=== PATIENT | male | born 1960 | race Caucasian/White ===

== ENCOUNTER 2018-12-12 12:08 | Emergency (ER) | payer OTHER ==
--- NOTE | 2018-12-12 13:28 | EDM.PDOC ---
ED HPI GENERAL MEDICAL PROBLEM - General Chief Complaint: Abdominal Pain Stated Complaint: PAIN ON LOWER RIGHT AREA Time Seen by Provider: 12/12/18 12:55 Source of Information: Reports: Patient History Limitations: Reports: No Limitations - History of Present Illness INITIAL COMMENTS - FREE TEXT/NARRATIVE: 58 yo without significant medical history presents with concerns of abdominal pain. Actually has intermittent epigastric pain, but what brings him in today is RLQ abdominal pain. He reports that the pain started about 6 days ago. Has been intermittent, then overnight had several bouts of severe, sharp, non-radiating RLQ pain. He has not associated fevers or N/V. He has been having loose stools for some time without change. Pain has eased somewhat this morning, had normal BM, but still persists. Never had colonoscopy. No hx of renal stones, no hematuria or urinary symptoms. - Related Data Allergies Allergy/AdvReac Type Severity Reaction Status Date / Time No Known Allergies Allergy Verified 12/12/18 12:24 Home Meds: Home Meds Allopurinol [Zyloprim] 1 tab PO DAILY 12/12/18 [History] Celecoxib 1 tab PO DAILY 12/12/18 [History] Ciprofloxacin [Ciprofloxacin HCl] 500 mg PO BID #14 tab 12/12/18 [Rx] Levothyroxine 1 tab PO DAILY 12/12/18 [History] Lisinopril 1 tab PO DAILY 12/12/18 [History] metroNIDAZOLE [Flagyl] 500 mg PO Q8H 7 Days #21 tab 12/12/18 [Rx] Past Medical History Gastrointestinal History: Reports: Cirrhosis, Irritable Bowel Syndrome Genitourinary History: Reports: Renal Calculus Neurological History: Reports: Concussion Endocrine/Metabolic History: Reports: Hypothyroidism Dermatologic History: Reports: Other (See Below) Other Dermatologic History: pilonidal cyst - Past Surgical History HEENT Surgical History: Reports: Tonsillectomy Musculoskeletal Surgical History: Reports: Hip Replacement Social & Family History - Tobacco Use Smoking Status *Q: Never Smoker ED ROS GENERAL - Review of Systems Review Of Systems: See Below Constitutional: Reports: No Symptoms HEENT: Reports: No Symptoms Respiratory: Reports: No Symptoms Cardiovascular: Reports: No Symptoms Endocrine: Reports: No Symptoms GI/Abdominal: Reports: Abdominal Pain : Reports: No Symptoms Musculoskeletal: Reports: No Symptoms Skin: Reports: No Symptoms Neurological: Reports: No Symptoms Psychiatric: Reports: No Symptoms Hematologic/Lymphatic: Reports: No Symptoms Immunologic: Reports: No Symptoms ED EXAM, GI/ABD - Physical Exam Exam: See Below Exam Limited By: No Limitations General Appearance: Alert, No Apparent Distress Ears: Normal External Exam Nose: Normal Inspection Throat/Mouth: Normal Inspection Head: Atraumatic, Normocephalic Neck: Normal Inspection Respiratory/Chest: No Respiratory Distress, Lungs Clear Cardiovascular: Regular Rate, Rhythm GI/Abdominal Exam: Tender (RLQ tenderess, with deferred LLQ pain with palpation as well as LLQ tenderness). No: Distended, Guarding, Rigid (Male) Exam: No Hernia, Normal Inspection. No: Scrotal Swelling, Scrotum Tenderness (L), Scrotum Tenderness (R) Back Exam: Normal Inspection. No: CVA Tenderness (R), CVA Tenderness (L) Extremities: Normal Inspection Neurological: Alert, Oriented Psychiatric: Normal Affect, Normal Mood Skin Exam: Warm, Dry Course - Vital Signs Last Recorded V/S: Last Vital Signs Temp 36.9 C 12/12/18 12:49 Pulse 78 12/12/18 12:49 Resp 14 12/12/18 12:49 BP 127/84 12/12/18 12:49 Pulse Ox 98 12/12/18 12:49 - Orders/Labs/Meds Orders: Active Orders 24 hr Category Date Time Status Iopamidol [Isovue-300 (61%)] Med 12/12/18 13:45 Active 150 ml IV . DIRECTED Medication Orders Iopamidol (Isovue-300 (61%)) 150 ml IV . DIRECTED EAN Stop: 12/12/18 23:00 Last Admin: 12/12/18 14:21 Dose: 150 ml Labs: Laboratory Tests 12/12/18 12/12/18 Range/Units 13:21 13:35 WBC 11.1 H (4.5-11.0) K/uL RBC 4.95 (4.30-5.90) M/uL Hgb 15.6 H (12.0-15.0) g/dL Hct 48.0 (40.0-54.0) % MCV 97 (80-98) fL MCH 32 H (27-31) pg MCHC 33 (32-36) % Plt Count 176 (150-400) K/uL Sodium 136 L (140-148) mmol/L Potassium 4.3 (3.6-5.2) mmol/L Chloride 98 L (100-108) mmol/L Carbon Dioxide 29 (21-32) mmol/L Anion Gap 13.3 (5.0-14.0) mmol/L BUN 13 (7-18) mg/dL Creatinine 1.0 (0.8-1.3) mg/dL Est Cr Clr Drug Dosing 92.11 mL/min Estimated GFR (MDRD) > 60 (>60) Glucose 107 H (74-106) mg/dL Calcium 9.2 (8.5-10.1) mg/dL Total Bilirubin 1.2 H (0.2-1.0) mg/dL AST 58 H (15-37) U/L ALT 85 H (12-78) U/L Alkaline Phosphatase 73 (46-116) U/L Total Protein 8.2 (6.4-8.2) g/dL Albumin 4.0 (3.4-5.0) g/dL Globulin 4.2 H (2.3-3.5) g/dL Albumin/Globulin Ratio 1.0 L (1.2-2.2) Lipase 201 (73-393) U/L Meds: Medications Generic Name Dose Route Start Last Admin Trade Name Freq PRN Reason Stop Dose Admin Iopamidol 150 ml 12/12/18 13:45 12/12/18 14:21 Isovue-300 (61%) IV 12/12/18 23:00 150 ml . DIRECTED EAN Administration Discontinued Medications Generic Name Dose Route Start Last Admin Trade Name Freq PRN Reason Stop Dose Admin Sodium Chloride 80 mls @ 3.5 mls/sec 12/12/18 13:41 12/12/18 14:21 Normal Saline IV 12/12/18 13:42 3 mls/sec ONETIME ONE Administration Sodium Chloride 10 ml 12/12/18 13:41 12/12/18 14:21 Saline Flush FLUSH 12/12/18 13:42 10 ml ONETIME ONE Administration - Re-Assessments/Exams Free Text/Narrative Re-Assessment/Exam: 58 yo presents with concerns of lower abdominal pain. Somewhat sub-acute, with worsening earlier this morning. While history not terrible concerning, does have impressive tenderness on exam. No hernia. Normal vitals. We discussed work-up options and patient preference is go ahead with labs and CT , I do feel this is reasonable given his exam findings. 12/12/18 13:30 Free Text/Narrative Re-Assessment/Exam: Lab significant for mild leukocytosis,mild elevation of LFTs CT shows diverticulitis - clinically fits with his symptoms. Appears well, normal vitals, tolerating PO - appropriate for outpatient treatment Will prescribed cipro + flagyl Has PCP follow up next week, will discuss LFTs Return precautions provided. Discharged. 12/12/18 15:44 Departure - Departure Time of Disposition: 17:46 Disposition: Home, Self-Care 01 Clinical Impression: Diverticulitis - Discharge Information Prescriptions: Ciprofloxacin [Ciprofloxacin HCl] 500 mg PO BID #14 tab metroNIDAZOLE [Flagyl] 500 mg PO Q8H 7 Days #21 tab Referrals: Charissa Tavares MD [Primary Care Provider] - Forms: ED Department Discharge Additional Instructions: Please take the prescribed antibiotics Return to the ER for worsening pain, fevers, as discussed Follow up with your PCP as planned. - My Orders Last 24 Hours: My Active Orders 12/12/18 13:45 Iopamidol [Isovue-300 (61%)] 150 ml IV . DIRECTED - Assessment/Plan Last 24 Hours: My Active Orders 12/12/18 13:45 Iopamidol [Isovue-300 (61%)] 150 ml IV . DIRECTED
[2018-12-12] MEDS ORDERED: Sodium Chloride 0.9% 80 ML IV ONE (13:41)
[2018-12-12] MEDS ORDERED: Sodium Chloride 0.9% 10 ML Syringe FLUSH ONE (13:41)
[2018-12-12] MEDS ORDERED: Iopamidol 612 MG/ML 150 ML Bottle IV SCH (13:45)
--- NOTE | 2018-12-12 14:56 | CRLCT ---
Indication: Lower abdominal pain. Technique: Multiple contiguous axial images were obtained from the lung bases to the symphysis pubis after the intravenous administration of 100 milliliters Isovue-300. Please note that all CT scans at this facility use dose modulation, iterative reconstruction, and/or weight-based dosing when appropriate to reduce radiation dose to as low as reasonably achievable. Comparison: None Findings: The lung bases are clear. Micro nodules are identified in the right middle lobe. No infiltrate, pleural effusion, pneumothorax is identified. The heart is normal in size. Mild diffuse fatty infiltration of the liver is identified. The liver, gallbladder, pancreas, spleen, and adrenal glands are otherwise normal. No intrahepatic biliary ductal dilatation is identified. No hydronephrosis identified. Several bilateral renal cysts are identified. In the pelvis, the urinary bladder is grossly normal. Streak artifact from patient`s bilateral hip arthroplasties obscure multiple images. Diverticulitis of the ascending colon is identified. No abscess is identified. The appendix is normal in caliber. No free air or free fluid is identified within the abdomen or pelvis. No lytic or blastic lesions of the spine are present. Impression: Diverticulitis of the ascending colon. No abscess. No free air. Mild diffuse fatty infiltration of the liver Please note that all CT scans at this facility use dose modulation, iterative reconstruction, and/or weight-based dosing when appropriate to reduce radiation dose to as low as reasonably achievable. Dictated by Teresa Torres MD @ Dec 12 2018 2:41PM Signed by Dr. Teresa Torres @ Dec 12 2018 2:55PM
== END 2018-12-12 16:06 | disposition home or self-care (01) ==
LOC: JP.ED 12:08
DX: K57.32 Diverticulitis of large intestine without perforation or abscess without bleeding (principal); E03.9 Hypothyroidism, unspecified; Z79.899 Other long term (current) drug therapy; Z98.890 Other specified postprocedural states
CPT/HCPCS: 36415; 74177; 80053; 83690; 85027; 99284; J7030

== ENCOUNTER 2018-12-29 08:37 | Day surgery (SDC) | payer OTHER ==
[~2018-12-29 08:37] MED LIST: Midazolam 1 MG/ML 2 ML SDV ONE; Propofol 200 MG/20 ML SDV ONE; fentaNYL 100 MCG/2 ML SDV ONE
[2018-12-29] MEDS ORDERED: fentaNYL 100 MCG/2 ML SDV ONE (09:00)
[2018-12-29] MEDS ORDERED: Propofol 200 MG/20 ML SDV ONE ×2 (09:00→10:51)
[2018-12-29] MEDS ORDERED: Midazolam 1 MG/ML 2 ML SDV ONE (09:00)
[2018-12-29] MEDS ORDERED: Lactated Ringers 1,000 ML IV SCH (09:30)
--- NOTE | 2018-12-30 07:59 | OR ---
DATE OF PROCEDURE: 12/29/2018 SURGEON: Sam Avalos MD PREOPERATIVE DIAGNOSIS: Colon cancer screening. POSTOPERATIVE DIAGNOSES: Stroud-diverticulosis, 3 colon polyps. PROCEDURES PERFORMED: Colonoscopy to the cecum with biopsy and/or snare cautery polypectomy x3. ANESTHESIA: IV anesthesia with monitored anesthesia care. INDICATION: This 58-year-old white male is referred for his first colonoscopy. I counseled him for the procedure, including risks and alternatives, and he gave his informed consent to proceed. DESCRIPTION OF PROCEDURE: The patient was placed in the left lateral decubitus position. IV anesthesia was administered by the anesthesia service. Time-out was held. A rectal exam was performed, which was unremarkable. The flexible video Olympus colonoscope was introduced through his anus, up his rectum and out his colon, all the way to the cecum. En route, we saw polyps in the transverse colon, hepatic flexure and right colon. The one in the transverse colon was removed with the biopsy forceps. The other two were biopsied, but too large to remove using this technique. They both had snares passed about them and were amputated and aspirated up through the scope and captured in a polyp trap. Also, we noted both right and left-sided diverticula. There was no bleeding or inflammation at the present time associated with any of them. Once the cecum was reached, the scope was slowly withdrawn examining the mucosa throughout. No additional mucosal abnormalities were noted. The scope was retroflexed in the rectum with the distal rectum appearing unremarkable. The scope was straightened and removed. He tolerated the procedure well. Sam Avalos MD /[id number]
== END 2018-12-29 12:14 | disposition home or self-care (01) ==
LOC: JP.SDS 08:37
PROVIDERS: ATTEND Surgery
DX: Z12.11 Encounter for screening for malignant neoplasm of colon (principal); D12.3 Benign neoplasm of transverse colon; D12.2 Benign neoplasm of ascending colon; K57.30 Diverticulosis of large intestine without perforation or abscess without bleeding; K21.9 Gastro-esophageal reflux disease without esophagitis; I10 Essential (primary) hypertension; E03.9 Hypothyroidism, unspecified; G47.33 Obstructive sleep apnea (adult) (pediatric); M10.9 Gout, unspecified; Z99.89 Dependence on other enabling machines and devices
CPT/HCPCS: 45380; 45385; J2250; J2704; J3010; J7120; 88305

== ENCOUNTER 2020-08-27 05:47 | Day surgery (SDC) | payer OTHER ==
[2020-08-27] MEDS ORDERED: Bupivacaine 0.5% 30 ML SDV ONE (06:40)
[2020-08-27] MEDS ORDERED: ceFAZolin 2 GM in Premix Bag 1 BAG IV ONE (07:00)
[2020-08-27] MEDS ORDERED: Lactated Ringers 1,000 ML IV SCH (07:00)
[2020-08-27] MEDS ORDERED: Nozin Nasal Sanitizer NASBOTH ONE (07:00)
[2020-08-27] MEDS ORDERED: Propofol 200 MG/20 ML SDV ONE (07:18)
[2020-08-27] MEDS ORDERED: Rocuronium 50 MG/5 ML Vial ONE (07:18)
[2020-08-27] MEDS ORDERED: Succinylcholine 200 MG/10 ML MDV ONE (07:18)
[2020-08-27] MEDS ORDERED: Neostigmine Methylsulfate 1 MG/ML 5 ML Syringe ONE (07:18)
[2020-08-27] MEDS ORDERED: fentaNYL 250 MCG/5 ML SDV ONE (07:18)
[2020-08-27] MEDS ORDERED: Glycopyrrolate 0.2 MG/ML 5 ML MDV ONE (07:18)
[2020-08-27] MEDS ORDERED: Dexamethasone 4 MG/ML SDV ONE (07:18)
[2020-08-27] MEDS ORDERED: Ondansetron 4 MG/2 ML SDV ONE (07:18)
[2020-08-27] MEDS ORDERED: Acetaminophen/HYDROcodone 325-5 MG Tab PO ONE (09:30)
--- NOTE | 2020-08-28 15:13 | PCM.SN.2 ---
- Free Text/Narrative Note: Patient came into clinic on POD#1 for concerns of bloody drainage on CHIDI wrap. Patient unsure if drainage was present yesterday or if it occurred this morning with ambulation. Endorsed pain in R knee, has been well controlled with Moss. CHIDI wrap and cast padding with dried bloody drainage removed from R knee. Steris trips intact over 2 poke holes, minimal ecchymosis present. No active drainage from incision. No surrounding erythema. Minimal warmth to touch of R knee. Blood under lateral poke hole was cleansed with soap and wash cloth, new ABD dressing applied over steri strips, and a 6 inch CHIDI wrap applied around right knee. Explained to patient that some drainage for the next 3-4 days is common. Patient may remove dressing tomorrow and shower. Okay to let water run over the steristrips. Reviewed SSI warning signs and return precautions with patient. Patient expressed understanding. No other questions at this time. Will see patient at 2 week post-operative visit. Encouraged patient to call with any questions that arise prior to scheduled apt.
--- NOTE | 2020-09-03 19:11 | OR ---
DATE OF PROCEDURE: 08/27/2020 SURGEON: Rolando Timmons MD PREOPERATIVE DIAGNOSIS: Medial meniscus tear, right knee. POSTOPERATIVE DIAGNOSES: 1. Medial meniscus tear, right knee, posterior horn, parrot-beak. 2. Chondromalacia, trochlea and medial femoral condyle, grade 3. PROCEDURE PERFROMED: Arthroscopy of right knee with partial medial meniscectomy and chondroplasty, trochlea and medial femoral condyle. ANESTHESIA: General. INDICATIONS: Daniel is a 60-year-old gentleman with a history of medial right knee pain. Examination and imaging are consistent with a tear of the medial meniscus and articular cartilage thinning. He now presents for partial meniscectomy and chondroplasty as needed. Risks, benefits, and potential complications of the procedure were discussed including possibility of repair of the meniscus if possible. DESCRIPTION OF PROCEDURE: After adequate anesthesia was obtained, the patient was placed supine with a tourniquet above the right upper thigh. The right leg was prepped and draped in a sterile fashion. The leg was exsanguinated and tourniquet inflated to 300 mmHg pressure. Standard inferior, medial, and lateral portals were established. The scope was introduced, and the patellofemoral joint was inspected. This revealed some grade 2 and 3 changes primarily of the trochlear groove with some thinning of the patella. Medial femoral condyle showed grade 4 changes. A parrot-beak tear of the posterior horn was noted with the flap portion of the tear folded onto itself and deformed. This was debrided with a combination of a punch basket and shaver. A chondroplasty was performed over the medial femoral condyle, removing all loose articular flaps. Intercondylar notch revealed intact ACL and PCL. Lateral compartment showed intact meniscus and articular cartilage. The knee was inspected once again. All loose fragments were removed. The knee was drained. The scope was withdrawn. Port sites were closed in a standard fashion. Rolando Timmons MD /[id number]
== END 2020-08-27 10:15 | disposition home or self-care (01) ==
LOC: JP.SDS 05:47
PROVIDERS: ATTEND Specialist
DX: S83.241A Other tear of medial meniscus, current injury, right knee, initial encounter (principal); M94.261 Chondromalacia, right knee; E03.9 Hypothyroidism, unspecified; I10 Essential (primary) hypertension; G47.33 Obstructive sleep apnea (adult) (pediatric); E66.01 Morbid (severe) obesity due to excess calories; Z79.890 Hormone replacement therapy; Z79.899 Other long term (current) drug therapy; Z87.891 Personal history of nicotine dependence
CPT/HCPCS: 29881; 36415; 86850; 86900; 86901; A9270; J0330; J0690; J1100; J2405; J2704; J3010; J3490; J7120; J2710

== ENCOUNTER 2022-06-27 06:17 | Day surgery (SDC) | payer BC ==
[2022-06-27] MEDS ORDERED: Sodium Chloride 0.9% 1,000 ML IV SCH (07:00)
[2022-06-27] MEDS ORDERED: Propofol 200 MG/20 ML SDV ONE ×2 (07:17→08:04)
[2022-06-27] MEDS ORDERED: fentaNYL 50 MCG/ML SDV ONE (07:18)
[2022-06-27] MEDS ORDERED: Midazolam 1 MG/ML 2 ML SDV ONE (07:18)
== END 2022-06-27 09:37 | disposition home or self-care (01) ==
LOC: JP.SDS 06:17
PROVIDERS: ATTEND Surgery
DX: Z12.11 Encounter for screening for malignant neoplasm of colon (principal); D12.3 Benign neoplasm of transverse colon; K57.30 Diverticulosis of large intestine without perforation or abscess without bleeding; I10 Essential (primary) hypertension; K21.9 Gastro-esophageal reflux disease without esophagitis; Z86.010 Personal history of colon polyps
CPT/HCPCS: 45380; 45385; 88305; J2250; J2704; J3010; J7030

== ENCOUNTER 2023-09-23 06:37 | Day surgery (SDC) | payer BC ==
[2023-09-23] MEDS ORDERED: fentaNYL 50 MCG/ML SDV ONE (07:00)
[2023-09-23] MEDS ORDERED: Propofol 200 MG/20 ML SDV ONE (07:00)
[2023-09-23] MEDS ORDERED: Midazolam 1 MG/ML 2 ML SDV ONE (07:00)
[2023-09-23] MEDS: Sodium Chloride 0.9% 1,000 ML IV SCH (07:49)
== END 2023-09-23 09:35 | disposition home or self-care (01) ==
LOC: JP.SDS 06:37
PROVIDERS: ATTEND Surgery
DX: Z12.11 Encounter for screening for malignant neoplasm of colon (principal); K57.30 Diverticulosis of large intestine without perforation or abscess without bleeding; I10 Essential (primary) hypertension
CPT/HCPCS: 00812-QZ; J2250; J2704; J3010; J7030

== ENCOUNTER 2024-03-24 07:56 | Day surgery (SDC) | payer BC ==
[2024-03-24] MEDS: Lactated Ringers 1,000 ML IV SCH (08:56)
[2024-03-24] MEDS ORDERED: fentaNYL 100 MCG/2 ML SDV ONE (10:16)
[2024-03-24] MEDS ORDERED: Propofol 200 MG/20 ML SDV ONE (10:16)
[2024-03-24] MEDS ORDERED: Midazolam 1 MG/ML 2 ML SDV ONE (10:16)
[2024-03-24] MEDS: ceFAZolin 2 GM in Premix Bag 1 BAG IV ONE (10:30)
[2024-03-24] MEDS: Lidocaine 1% with EPINEPHrine 1:100,000 50 ML MDV ONE (12:53)
[2024-03-24] MEDS: Bupivacaine 0.5% 50 ML MDV ONE (12:53)
== END 2024-03-24 12:55 | disposition home or self-care (01) ==
LOC: JP.SDS 07:56
PROVIDERS: ATTEND Surgery
DX: D17.0 Benign lipomatous neoplasm of skin and subcutaneous tissue of head, face and neck (principal); I10 Essential (primary) hypertension; K21.9 Gastro-esophageal reflux disease without esophagitis; G47.33 Obstructive sleep apnea (adult) (pediatric); Z91.013 Allergy to seafood
CPT/HCPCS: 00300-QZ; J0665; J0690; J2250; J2704; J3010; J7120